=== PATIENT | female | born 1955 | race Hispanic/Latino ===

== ENCOUNTER → 2017-07-06 | Outpatient (CLI) | payer MEDICAID | END | disposition home or self-care (01) | LOC: SHCH 11:28 | PROVIDERS: ATTEND Internal Medicine Cardiovascular Disease | DX: I65.23 Occlusion and stenosis of bilateral carotid arteries (principal); I25.10 Atherosclerotic heart disease of native coronary artery without angina pectoris | CPT/HCPCS: 93880 ==

== ENCOUNTER 2017-10-15 08:08 | Emergency (ER) | payer MEDICAID ==
[2017-10-15] MEDS ORDERED: SODIUM CHLORIDE 0.9% 1000ML 1,000 ML IV ONE (09:07)
[2017-10-15] MEDS ORDERED: ONDANSETRON HCL MDV 20ML 2 MG/ML VIAL ONE (09:07)
[2017-10-15 09:08] LABS: EOSINOPHILS % (AUTO) 0.6 % (0.0-8.0); HEMATOCRIT 39.7 % (36-48); LYMPHOCYTES % (AUTO) 14.4 % (21.0-51.0); MEAN CORPUSCULAR HEMOGLOBIN 26.9 pg (27.0-33.0); MEAN CORPUSCULAR HGB CONC 32.8 g/dL (32.0-36.0); MONOCYTES % (AUTO) 12.1 % (3.0-13.0); NEUTROPHILS % (AUTO) 71.9 % (40.0-77.0); PLATELET COUNT (AUTO) 251 K/uL (130-400); RED BLOOD CELL COUNT(AUTO) 4.84 MIL/uL (4.00-5.50); RED CELL DISTRIBUTION WIDTH 16.6 % (11.0-15.5); WHITE BLOOD COUNT (AUTO) 11.8 K/uL (4.8-10.8)
[2017-10-15 09:15] LABS: CREATININE 2.2 mg/dL (0.5-1.5); POTASSIUM 4.2 mmol/L (3.5-5.1)
[2017-10-15 09:16] LABS: INR 1.01 (0.85-1.15); PROTHROMBIN TIME 10.6 SEC (9.6-11.6)
[2017-10-15 09:20] LABS: ALBUMIN 3.6 g/dL (3.5-5.0); BILIRUBIN,DIRECT 0.1 mg/dL (0.0-0.3); BILIRUBIN,TOTAL 0.4 mg/dL (0.2-1.0); TOTAL PROTEIN, SERUM 7.9 g/dL (6.0-8.3)
== END 2017-10-15 11:17 | disposition home or self-care (01) ==
LOC: EDH 08:08
DX: R10.9 Unspecified abdominal pain (principal); R11.2 Nausea with vomiting, unspecified; I25.10 Atherosclerotic heart disease of native coronary artery without angina pectoris; E11.9 Type 2 diabetes mellitus without complications; I10 Essential (primary) hypertension; Z86.73 Personal history of transient ischemic attack (TIA), and cerebral infarction without residual deficits; Z95.1 Presence of aortocoronary bypass graft; Z90.49 Acquired absence of other specified parts of digestive tract; Z88.8 Allergy status to other drugs, medicaments and biological substances
CPT/HCPCS: 36415; 74176; 80048; 80076; 83690; 84484; 85025; 85610; 85730; 93005; 96361; 96374; 99285; J7030

== ENCOUNTER → 2018-06-14 | Outpatient (CLI) | payer MEDICAID | END | disposition home or self-care (01) | LOC: SHCH 10:00 | PROVIDERS: ATTEND Internal Medicine Cardiovascular Disease | DX: I35.0 Nonrheumatic aortic (valve) stenosis (principal); I73.9 Peripheral vascular disease, unspecified | CPT/HCPCS: 93925 ==

== ENCOUNTER → 2018-12-12 | Outpatient (CLI) | payer MEDICARE | END | disposition home or self-care (01) | LOC: SHCH 10:34 | PROVIDERS: ATTEND Internal Medicine Cardiovascular Disease | DX: I65.23 Occlusion and stenosis of bilateral carotid arteries (principal); I25.810 Atherosclerosis of coronary artery bypass graft(s) without angina pectoris | CPT/HCPCS: 93880 ==

== ENCOUNTER 2021-04-14 16:37 | Inpatient (IN) | payer OTHER, MEDICARE ==
[~2021-04-14] VITALS: Ht 147.3 cm; Wt 79.7 kg
[~2021-04-14 16:37] MED LIST: AMLODIPINE PO; APIX5TAB PO; ASPI-556 PO; ATOR40TA71 PO; FURO40TA5 PO; INSU3INS5 SQ; ISOS20TA85 PO; LAMO100T16 PO; LAMO150T6 PO; LEVO50TA11 PO; LISI40TA9 PO; PARO37.516 PO
[2021-04-14] MEDS ORDERED: ONDANSETRON 4MG INJ IVP ONE (17:30)
[2021-04-14] MEDS ORDERED: 0.9% NACL 500ML IV.SOLN 500 ML IV ONE ×2 (17:30→17:38)
[2021-04-14] MEDS ORDERED: FAMOTIDINE 20MG TAB PO ONE (17:30)
[2021-04-14] MEDS ORDERED: FAMOTIDINE 20MG TAB ONE (17:37)
[2021-04-14] MEDS ORDERED: FAMOTIDINE 20MG VIAL IV ONE ×2 (17:43→18:00)
[2021-04-14] MEDS: ONDANSETRON 4MG INJ ONE ×2 (17:51→17:56)
[2021-04-14 17:59] LABS: BASOPHILS % (AUTO) 0.4 % (0.0-5.0); EOSINOPHILS % (AUTO) 1.3 % (0.0-8.0); HEMATOCRIT 28.4 % (36-48); LYMPHOCYTES % (AUTO) 6.1 % (21.0-51.0); MEAN CORPUSCULAR HEMOGLOBIN 25.9 pg (27.0-33.0); MEAN CORPUSCULAR HGB CONC 31.3 g/dL (32.0-36.0); MEAN CORPUSCULAR VOLUME 82.6 fL (79-99); MONOCYTES % (AUTO) 10.7 % (3.0-13.0); PLATELET COUNT (AUTO) 248 K/uL (130-400); RED BLOOD CELL COUNT(AUTO) 3.44 MIL/uL (4.00-5.50); RED CELL DISTRIBUTION WIDTH 18.6 % (11.0-15.5); WHITE BLOOD COUNT (AUTO) 13.5 K/uL (4.8-10.8)
[2021-04-14 18:11] LABS: CARBON DIOXIDE 31 mmol/L (21-32); CHLORIDE 100 mmol/L (101-111); CREATININE 2.5 mg/dL (0.5-1.5); GLOMERULAR FILTR. RATE CALC 20 mL/min (>60); GLUCOSE,RANDOM 183 mg/dL (70-105); POTASSIUM 3.3 mmol/L (3.5-5.1); SODIUM SERUM 141 mmol/L (136-145); UREA NITROGEN, BLOOD 35 mg/dL (7-18)
[2021-04-14 18:15] LABS: ALANINE AMINOTRANSFERASE 20 U/L (12-78); ALBUMIN 2.9 g/dL (3.5-5.0); AMYLASE 66 U/L (25-115); ASPARTATE AMINOTRANSFERASE 24 U/L (10-37); BILIRUBIN,TOTAL 0.6 mg/dL (0.2-1.0); CREATINE KINASE, TOTAL 158 U/L (21-232)
[2021-04-14 18:21] LABS: LIPASE < 50 U/L (114-286)
[2021-04-14 21:57] LABS: APPEARANCE,URINE Clear (CLEAR); BILIRUBIN,URINE Negative (NEGATIVE); COLOR,URINE Yellow (YELLOW); GLUCOSE, URINE (UA) Negative (NEGATIVE); KETONES,URINE Negative (NEGATIVE); LEUKOCYTE ESTERASE ,URINE Small (NEGATIVE); NITRATE,URINE Negative (NEGATIVE); OCCULT BLOOD,URINE Small (NEGATIVE); PH,URINE 5.5 (5.0-8.0); PROTEIN,URINE POS 2+ mg/dL (NEGATIVE)
[2021-04-14 22:03] LABS: BACTERIA,URINE Few /HPF (None Seen); SQUAMOUS EPITHELIAL CELL,UR Few /HPF (0-2); YEAST,URINE BUDDING Few /HPF (None Seen)
[2021-04-14 22:04] LABS: MUCUS,URINE Rare LPF (None Seen)
[2021-04-14 22:05] LABS: COARSE GRANULAR CASTS,URINE 0-2 /LPF (None Seen)
[2021-04-14] MEDS ORDERED: ZOSYN 3.375GM+NS 50ML 3.38 GM in 0.9%NACL 50ML 50 ML IV STA (22:35)
[2021-04-14] MEDS ORDERED: ACETAMINOPHEN 325 MG TAB PO PRN (23:30)
[2021-04-14] MEDS ORDERED: DEXTROSE 50%-WATER 50 ML DISP.SYRIN IV PRN (23:30)
[2021-04-14] MEDS ORDERED: BISACODYL 10 MG SUPP.RECT RC ONE (23:30)
[2021-04-14] MEDS ORDERED: POTASSIUM CHLORIDE 10MEQ/100ML 10 MEQ/100 ML ML IV SCH (23:30)
[2021-04-14] MEDS ORDERED: 0.9%NACL 1000ML 1,000 ML IV SCH (23:30)
[2021-04-14] MEDS ORDERED: ONDANSETRON 4MG INJ IV PRN (23:30)
[2021-04-14] MEDS ORDERED: NITROGLYCERIN 0.4 MG SL TAB SL PRN (23:30)
[2021-04-14] MEDS ORDERED: GLUCAGON 1MG KIT 1 MG ML IM PRN (23:30)
[2021-04-14 23:37] LABS: % IRON SATURATION 8.1 % (22-44)
[2021-04-14] MEDS ORDERED: AZITHROMYCIN 500MG+NS 250ML 250 ML IV ONE (23:38)
[2021-04-14 23:39] LABS: HEMOGLOBIN A1C 7.7 % (4.0-6.0)
[2021-04-14] MEDS ORDERED: POTASSIUM CHLORIDE 10MEQ/100ML 100 ML IV ONE (23:45)
[2021-04-14 23:48] LABS: CRP QUANTITATIVE 71.7 mg/L (0.00-9.0)
[2021-04-14 23:53] LABS: MAGNESIUM 1.9 mg/dL (1.80-2.40)
[2021-04-15] VITALS (7 sets, daily range): BP systolic 137–156; BP diastolic 41–87
[2021-04-15] MEDS: 0.9% NACL 250ML IVPB SCH (00:13)
[2021-04-15] MEDS: CEFTRIAXONE 1G VIAL IVP SCH (00:13)
[2021-04-15] MEDS: AZITHROMYCIN 500MG VIAL IVPB SCH (00:13)
[2021-04-15] MEDS ORDERED: KCL 20 MEQ ERTAB PO ONE (04:00)
[2021-04-15] MEDS ORDERED: FUROSEMIDE 20MG VIAL IV SCH (07:30)
[2021-04-15 10:12] LABS: BASOPHILS % (AUTO) 0.5 % (0.0-5.0); EOSINOPHILS % (AUTO) 1.4 % (0.0-8.0); HEMATOCRIT 28.4 % (36-48); LYMPHOCYTES % (AUTO) 5.3 % (21.0-51.0); MEAN CORPUSCULAR VOLUME 83.8 fL (79-99); MONOCYTES % (AUTO) 11.1 % (3.0-13.0); NEUTROPHILS % (AUTO) 81.3 % (40.0-77.0); NUCLEATED RED BLOOD CELLS 0.1 % (0.0-0.19); PLATELET COUNT (AUTO) 232 K/uL (130-400); RED BLOOD CELL COUNT(AUTO) 3.39 MIL/uL (4.00-5.50); RED CELL DISTRIBUTION WIDTH 18.6 % (11.0-15.5)
[2021-04-15 10:25] LABS: ALBUMIN 2.6 g/dL (3.5-5.0); BILIRUBIN,TOTAL 0.5 mg/dL (0.2-1.0); CREATININE 2.3 mg/dL (0.5-1.5); MAGNESIUM 1.9 mg/dL (1.80-2.40); POTASSIUM 3.1 mmol/L (3.5-5.1); TOTAL PROTEIN, SERUM 6.7 g/dL (6.0-8.3)
[2021-04-15 10:27] LABS: INR 1.12 (0.85-1.15); PROTHROMBIN TIME 12.1 SEC (9.6-11.6)
[2021-04-15 10:29] LABS: PARTIAL THROMBOPLASTIN TIME 32.7 SEC (26.3-35.5)
[2021-04-15] MEDS: INSULIN HUMULIN R 100 UNIT/ML 3ML SQ SCH ×3 (12:00→17:02)
[2021-04-15] MEDS: HEPARIN 5,000 UNIT VIAL SQ SCH ×2 (14:00→14:19)
[2021-04-15] MEDS: FAMOTIDINE 20MG VIAL IV SCH (14:09)
[2021-04-16] MEDS: HEPARIN 5,000 UNIT VIAL SQ SCH ×4 (00:03→21:40)
[2021-04-16] MEDS ORDERED: AZITHROMYCIN 500MG+NS 250ML 250 ML IV ONE ×2 (00:45→21:24)
[2021-04-16] MEDS: CEFTRIAXONE 1G VIAL IVP SCH ×2 (01:41→21:31)
[2021-04-16] MEDS: AZITHROMYCIN 500MG VIAL IVPB SCH ×2 (01:41→21:31)
[2021-04-16] MEDS: 0.9% NACL 250ML IVPB SCH ×2 (01:41→21:31)
[2021-04-16 04:04] VITALS: BP 146/59
[2021-04-16 04:57] LABS: HEMATOCRIT 28.7 % (36-48); MEAN CORPUSCULAR HEMOGLOBIN 25.6 pg (27.0-33.0); MEAN CORPUSCULAR HGB CONC 30.3 g/dL (32.0-36.0); MEAN CORPUSCULAR VOLUME 84.4 fL (79-99); NUCLEATED RED BLOOD CELLS 0.4 % (0.0-0.19); RED BLOOD CELL COUNT(AUTO) 3.4 MIL/uL (4.00-5.50); RED CELL DISTRIBUTION WIDTH 18.6 % (11.0-15.5); WHITE BLOOD COUNT (AUTO) 13.7 K/uL (4.8-10.8)
[2021-04-16 05:19] LABS: ALBUMIN 2.6 g/dL (3.5-5.0); BILIRUBIN,TOTAL 0.6 mg/dL (0.2-1.0); CREATININE 2.5 mg/dL (0.5-1.5); POTASSIUM 3.5 mmol/L (3.5-5.1); TOTAL PROTEIN, SERUM 6.7 g/dL (6.0-8.3)
[2021-04-16] MEDS: INSULIN HUMULIN R 100 UNIT/ML 3ML SQ SCH ×5 (06:22→21:41)
[2021-04-16 08:00] VITALS: BP 152/79
[2021-04-16] MEDS ORDERED: FUROSEMIDE 20MG VIAL IV SCH (09:00)
[2021-04-16] MEDS: FAMOTIDINE 20MG VIAL IV SCH (09:10)
[2021-04-16] MEDS ORDERED: LUBIPROSTONE 24 MCG CAP ONE (12:18)
[2021-04-16] MEDS: LUBIPROSTONE 24 MCG CAP PO SCH (12:19)
[2021-04-16 12:22] VITALS: BP 162/64
[2021-04-16 15:52] VITALS: BP 146/65
[2021-04-16] MEDS ORDERED: CLON0.1T PO (17:24)
[2021-04-16] MEDS ORDERED: METO-391 PO (17:24)
[2021-04-16] MEDS ORDERED: ROSU40TA21 PO (17:24)
[2021-04-16] MEDS: FUROSEMIDE 20MG VIAL IV SCH ×2 (18:45→23:50)
[2021-04-16] MEDS ORDERED: SODIUM CHLORIDE 3% FOR INHALATION 4 ML/AMP VIAL.NEB IH ONE (19:18)
[2021-04-16 20:00] VITALS: BP 138/60
[2021-04-17] VITALS: BP 146/67
[2021-04-17 04:00] VITALS: BP 158/68
[2021-04-17 04:07] LABS: HEMATOCRIT 28.4 % (36-48); MEAN CORPUSCULAR HEMOGLOBIN 25.9 pg (27.0-33.0); MEAN CORPUSCULAR VOLUME 83.5 fL (79-99); NUCLEATED RED BLOOD CELLS 0.4 % (0.0-0.19); RED BLOOD CELL COUNT(AUTO) 3.4 MIL/uL (4.00-5.50); RED CELL DISTRIBUTION WIDTH 18.5 % (11.0-15.5); WHITE BLOOD COUNT (AUTO) 13.5 K/uL (4.8-10.8)
[2021-04-17 04:18] LABS: CREATININE 2.5 mg/dL (0.5-1.5)
[2021-04-17 04:26] LABS: POTASSIUM 2.8 mmol/L (3.5-5.1)
[2021-04-17 07:20] VITALS: BP 176/78
[2021-04-17] MEDS: INSULIN HUMULIN R 100 UNIT/ML 3ML SQ SCH ×4 (07:30→21:00)
[2021-04-17] MEDS: LUBIPROSTONE 24 MCG CAP PO SCH ×2 (08:00→17:00)
[2021-04-17] MEDS: FAMOTIDINE 20MG VIAL IV SCH (08:21)
[2021-04-17] MEDS: POTASSIUM CHLORIDE 10MEQ/100ML 100 ML IV PRN ×2 (08:21→16:41)
[2021-04-17] MEDS: FUROSEMIDE 20MG VIAL IV SCH ×2 (08:21→18:01)
[2021-04-17] MEDS: HEPARIN 5,000 UNIT VIAL SQ SCH ×2 (09:00→15:07)
[2021-04-17 10:07] VITALS: BP 151/63
[2021-04-17] MEDS ORDERED: PROPOFOL 10 MG/ML 20ML VIAL IV ONE (12:35)
[2021-04-17] MEDS ORDERED: SODIUM CHLORIDE 3% FOR INHALATION 4 ML/AMP VIAL.NEB IH ONE ×2 (12:57→21:35)
[2021-04-17 15:56] VITALS: BP 173/67
[2021-04-17 20:00] VITALS: BP 138/76
[2021-04-17 22:17] LABS: CREATININE 2.4 mg/dL (0.5-1.5)
[2021-04-17 22:23] LABS: POTASSIUM 2.6 mmol/L (3.5-5.1)
[2021-04-18] VITALS: BP 173/79
[2021-04-18] MEDS: HEPARIN 5,000 UNIT VIAL SQ SCH ×4 (00:06→21:00)
[2021-04-18] MEDS: CEFTRIAXONE 1G VIAL IVP SCH ×2 (00:06→23:08)
[2021-04-18] MEDS ORDERED: AZITHROMYCIN 500MG+NS 250ML 250 ML IV ONE ×2 (00:25→23:19)
[2021-04-18] MEDS: 0.9% NACL 250ML IVPB SCH ×2 (00:32→23:34)
[2021-04-18] MEDS: AZITHROMYCIN 500MG VIAL IVPB SCH ×2 (00:32→23:34)
[2021-04-18] MEDS: FUROSEMIDE 20MG VIAL IV SCH ×3 (01:21→17:21)
[2021-04-18] MEDS: POTASSIUM CHLORIDE 10MEQ/100ML 100 ML IV PRN ×3 (02:51→15:04)
[2021-04-18] MEDS: LIDOCAINE HCL-MPF 1% 2ML VIAL IV PRN ×3 (02:52→15:04)
[2021-04-18 04:00] VITALS: BP 173/73
[2021-04-18] MEDS: INSULIN HUMULIN R 100 UNIT/ML 3ML SQ SCH ×4 (07:30→21:00)
[2021-04-18 08:00] VITALS: BP 186/60
[2021-04-18] MEDS: LUBIPROSTONE 24 MCG CAP PO SCH ×2 (08:00→16:47)
[2021-04-18] MEDS ORDERED: 0.9% NACL 500ML IV.SOLN 500 ML IV ONE (08:39)
[2021-04-18] MEDS: HYDRALAZINE 20MG/ML VIAL IV PRN (08:49)
[2021-04-18] MEDS: FAMOTIDINE 20MG VIAL IV SCH (08:49)
[2021-04-18 11:33] VITALS: BP 163/57
[2021-04-18] MEDS ORDERED: PROPOFOL 10 MG/ML 20ML VIAL IV ONE ×2 (14:15)
[2021-04-18] MEDS ORDERED: LIDOCAINE PF 100MG/5ML (2%) SYRINGE 5ML ONE (14:15)
[2021-04-18 16:00] VITALS: BP 174/79
[2021-04-18] MEDS ORDERED: KCL 20 MEQ ERTAB PO ONE ×2 (17:00→18:44)
[2021-04-18 20:00] VITALS: BP 166/69
[2021-04-18] MEDS ORDERED: MAGNESIUM 2GM PREMIX 50ML 50 ML IV PRN (22:30)
[2021-04-19] VITALS (13 sets, daily range): BP systolic 118–171; BP diastolic 63–87
[2021-04-19] MEDS: HYDRALAZINE 20MG/ML VIAL IV PRN (00:48)
[2021-04-19] MEDS: FUROSEMIDE 20MG VIAL IV SCH (02:00)
[2021-04-19] MEDS: POTASSIUM CHLORIDE 10MEQ/100ML 100 ML IV PRN (03:19)
[2021-04-19] MEDS: LIDOCAINE HCL-MPF 1% 2ML VIAL IV PRN (03:19)
[2021-04-19] MEDS: INSULIN HUMULIN R 100 UNIT/ML 3ML SQ SCH ×4 (06:31→21:00)
[2021-04-19 07:10] LABS: HEMATOCRIT 32.1 % (36-48); MEAN CORPUSCULAR HEMOGLOBIN 25.8 pg (27.0-33.0); MEAN CORPUSCULAR HGB CONC 31.5 g/dL (32.0-36.0); MEAN CORPUSCULAR VOLUME 82.1 fL (79-99); NUCLEATED RED BLOOD CELLS 0.1 % (0.0-0.19); RED BLOOD CELL COUNT(AUTO) 3.91 MIL/uL (4.00-5.50); RED CELL DISTRIBUTION WIDTH 18.2 % (11.0-15.5); WHITE BLOOD COUNT (AUTO) 13.8 K/uL (4.8-10.8)
[2021-04-19 07:24] LABS: CREATININE 1.9 mg/dL (0.5-1.5); POTASSIUM 3.8 mmol/L (3.5-5.1)
[2021-04-19] MEDS: LUBIPROSTONE 24 MCG CAP PO SCH ×2 (08:00→16:23)
[2021-04-19] MEDS: HEPARIN 5,000 UNIT VIAL SQ SCH (09:00)
[2021-04-19] MEDS ORDERED: AMLODIPINE 5 MG TAB PO SCH (10:58)
[2021-04-19] MEDS ORDERED: PROPOFOL 10 MG/ML 20ML VIAL IV ONE (11:29)
[2021-04-19] MEDS: LACTULOSE 20 GM/30 ML UDCUP PO PRN ×2 (13:56→16:24)
[2021-04-19] MEDS ORDERED: MAGNESIUM CITRATE 296 ML SOLUTION PO SCH (15:00)
[2021-04-19] MEDS ORDERED: PEG 3350/NA SULF,BICARB,CL/KCL 4000 ML SOLN PO SCH (15:00)
[2021-04-19] MEDS ORDERED: AMLODIPINE 5 MG TAB PO ONE (16:05)
[2021-04-19] MEDS ORDERED: LACTULOSE 20 GM/30 ML UDCUP ONE (16:21)
[2021-04-19] MEDS: FAMOTIDINE 20MG VIAL IV SCH (16:24)
[2021-04-19] MEDS ORDERED: BISACODYL 5 MG TABLET.DR PO SCH (17:00)
[2021-04-19] MEDS ORDERED: LAMOTRIGINE 25 MG TAB PO SCH (21:00)
[2021-04-19] MEDS ORDERED: METOPROLOL SUCCINATE 50 MG TAB.SR.24H PO SCH ×2 (21:00)
[2021-04-19] MEDS ORDERED: LAMOTRIGINE 100 MG TABLET PO SCH (21:00)
[2021-04-19] MEDS: PAROXETINE HCL 20 MG TABLET PO SCH (21:44)
[2021-04-19] MEDS ORDERED: LORAZEPAM 2 MG/ML 1 ML VIAL ONE (21:56)
[2021-04-19] MEDS ORDERED: MORPHINE 2 MG SYG ONE (22:00)
[2021-04-19] MEDS ORDERED: MORPHINE 2 MG SYG IVP ONE (22:00)
[2021-04-19] MEDS: ATORVASTATIN 40 MG TABLET PO SCH (23:01)
[2021-04-19] MEDS: ISOSORBIDE MONONITRATE 20 MG TABLET PO SCH (23:01)
[2021-04-19] MEDS ORDERED: AZITHROMYCIN 500MG+NS 250ML 250 ML IV ONE (23:09)
[2021-04-19] MEDS: 0.9% NACL 250ML IVPB SCH (23:11)
[2021-04-19] MEDS: AZITHROMYCIN 500MG VIAL IVPB SCH (23:11)
[2021-04-19] MEDS: CEFTRIAXONE 1G VIAL IVP SCH (23:11)
[2021-04-20] VITALS (21 sets, daily range): BP systolic 105–161; BP diastolic 46–77
[2021-04-20 04:16] LABS: BASOPHILS % (AUTO) 0.5 % (0.0-5.0); EOSINOPHILS % (AUTO) 4.7 % (0.0-8.0); HEMATOCRIT 35.5 % (36-48); LYMPHOCYTES % (AUTO) 7.3 % (21.0-51.0); MEAN CORPUSCULAR HEMOGLOBIN 25.7 pg (27.0-33.0); MEAN CORPUSCULAR HGB CONC 30.1 g/dL (32.0-36.0); MEAN CORPUSCULAR VOLUME 85.3 fL (79-99); MONOCYTES % (AUTO) 9.8 % (3.0-13.0); NEUTROPHILS % (AUTO) 77.1 % (40.0-77.0); PLATELET COUNT (AUTO) 308 K/uL (130-400); RED BLOOD CELL COUNT(AUTO) 4.16 MIL/uL (4.00-5.50); RED CELL DISTRIBUTION WIDTH 18.7 % (11.0-15.5); WHITE BLOOD COUNT (AUTO) 14.4 K/uL (4.8-10.8)
[2021-04-20 04:43] LABS: ALBUMIN 2.9 g/dL (3.5-5.0); BILIRUBIN,TOTAL 0.4 mg/dL (0.2-1.0); POTASSIUM 3.7 mmol/L (3.5-5.1); TOTAL PROTEIN, SERUM 7.1 g/dL (6.0-8.3)
[2021-04-20] MEDS: INSULIN HUMULIN R 100 UNIT/ML 3ML SQ SCH ×4 (06:27→21:00)
[2021-04-20] MEDS: LUBIPROSTONE 24 MCG CAP PO SCH ×2 (08:00→17:01)
[2021-04-20] MEDS: ASPIRIN 81 MG EC TAB PO SCH (08:08)
[2021-04-20] MEDS ORDERED: LAMOTRIGINE 100 MG TABLET PO SCH (09:00)
[2021-04-20] MEDS: FAMOTIDINE 20MG VIAL IV SCH (09:16)
[2021-04-20] MEDS: FUROSEMIDE 40 MG TABLET PO SCH (09:17)
[2021-04-20] MEDS: ISOSORBIDE MONONITRATE 20 MG TABLET PO SCH ×2 (09:18→20:16)
[2021-04-20] MEDS: AMLODIPINE 5 MG TAB PO SCH (09:18)
[2021-04-20] MEDS ORDERED: PHARMACY COMMUNICATION MISC SCH (10:30)
[2021-04-20] MEDS ORDERED: PHENYLEPHRINE HCL 10 MG/ML 1ML VIAL IV ONE (11:07)
[2021-04-20] MEDS ORDERED: PROPOFOL 10 MG/ML 20ML VIAL IV ONE (11:07)
[2021-04-20] MEDS ORDERED: LIDOCAINE HCL 400MG/20ML VIAL ONE (11:09)
[2021-04-20] MEDS ORDERED: AZITHROMYCIN 500MG+NS 250ML 250 ML IV ONE (20:00)
[2021-04-20] MEDS: PAROXETINE HCL 20 MG TABLET PO SCH (20:16)
[2021-04-20] MEDS: HYDROCORTISONE 25 MG SUPPOSITORY PR SCH (20:16)
[2021-04-20] MEDS: ATORVASTATIN 40 MG TABLET PO SCH (20:16)
[2021-04-20] MEDS: LAMOTRIGINE 100 MG TABLET PO SCH (20:17)
[2021-04-20] MEDS: CEFTRIAXONE 1G VIAL IVP SCH (20:18)
[2021-04-20] MEDS: AZITHROMYCIN 500MG VIAL IVPB SCH (20:18)
[2021-04-20] MEDS: 0.9% NACL 250ML IVPB SCH (20:18)
[2021-04-21] MEDS: INSULIN HUMULIN R 100 UNIT/ML 3ML SQ SCH ×5 (01:42→23:21)
[2021-04-21 02:20] VITALS: BP 96/45
[2021-04-21 03:30] VITALS: BP 110/50
[2021-04-21] MEDS: LUBIPROSTONE 24 MCG CAP PO SCH ×2 (09:00→17:46)
[2021-04-21] MEDS: ASPIRIN 81 MG EC TAB PO SCH (09:00)
[2021-04-21] MEDS: FAMOTIDINE 20MG VIAL IV SCH (10:08)
[2021-04-21] MEDS: ISOSORBIDE MONONITRATE 20 MG TABLET PO SCH ×2 (10:08→23:07)
[2021-04-21] MEDS: FUROSEMIDE 40 MG TABLET PO SCH (10:09)
[2021-04-21] MEDS: LAMOTRIGINE 100 MG TABLET PO SCH ×2 (10:09→23:07)
[2021-04-21] MEDS: AMLODIPINE 5 MG TAB PO SCH (10:16)
[2021-04-21 11:21] LABS: INR 1.03 (0.85-1.15); PROTHROMBIN TIME 11.2 SEC (9.6-11.6)
[2021-04-21 11:23] LABS: PARTIAL THROMBOPLASTIN TIME 27.1 SEC (26.3-35.5)
[2021-04-21] MEDS: HYDROCORTISONE 25 MG SUPPOSITORY PR SCH ×2 (12:08→21:00)
[2021-04-21 15:30] VITALS: BP 140/61
[2021-04-21 20:00] VITALS: BP 113/49
[2021-04-21] MEDS ORDERED: AZITHROMYCIN 500MG+NS 250ML 250 ML IV ONE (22:43)
[2021-04-21] MEDS: ATORVASTATIN 40 MG TABLET PO SCH (23:07)
[2021-04-21] MEDS: PAROXETINE HCL 20 MG TABLET PO SCH (23:07)
[2021-04-21] MEDS: 0.9% NACL 250ML IVPB SCH (23:08)
[2021-04-21] MEDS: AZITHROMYCIN 500MG VIAL IVPB SCH (23:08)
[2021-04-21] MEDS: CEFTRIAXONE 1G VIAL IVP SCH (23:09)
[2021-04-21 23:34] VITALS: BP 155/43
[2021-04-22 03:16] VITALS: BP 128/49
[2021-04-22] MEDS: INSULIN HUMULIN R 100 UNIT/ML 3ML SQ SCH ×4 (07:03→21:41)
[2021-04-22] MEDS: LUBIPROSTONE 24 MCG CAP PO SCH ×2 (08:00→17:22)
[2021-04-22] MEDS: FAMOTIDINE 20MG VIAL IV SCH (08:25)
[2021-04-22] MEDS: HYDROCORTISONE 25 MG SUPPOSITORY PR SCH ×2 (09:00→21:47)
[2021-04-22] MEDS: LAMOTRIGINE 100 MG TABLET PO SCH ×2 (09:00→21:33)
[2021-04-22] MEDS: ASPIRIN 81 MG EC TAB PO SCH (09:00)
[2021-04-22] MEDS: FUROSEMIDE 40 MG TABLET PO SCH (09:00)
[2021-04-22] MEDS: ISOSORBIDE MONONITRATE 20 MG TABLET PO SCH ×2 (09:00→21:33)
[2021-04-22] MEDS: AMLODIPINE 5 MG TAB PO SCH (09:00)
[2021-04-22 10:10] VITALS: BP 128/53
[2021-04-22 11:24] VITALS: BP 106/60
[2021-04-22 15:39] VITALS: BP 152/61
[2021-04-22 20:04] VITALS: BP 139/61
[2021-04-22] MEDS ORDERED: AZITHROMYCIN 500MG+NS 250ML 250 ML IV ONE (21:25)
[2021-04-22] MEDS: ATORVASTATIN 40 MG TABLET PO SCH (21:32)
[2021-04-22] MEDS: PAROXETINE HCL 20 MG TABLET PO SCH (21:33)
[2021-04-22] MEDS: AZITHROMYCIN 500MG VIAL IVPB SCH (22:43)
[2021-04-22] MEDS: CEFTRIAXONE 1G VIAL IVP SCH (22:43)
[2021-04-22] MEDS: 0.9% NACL 250ML IVPB SCH (22:44)
[2021-04-23] VITALS (8 sets, daily range): BP systolic 114–156; BP diastolic 50–65
[2021-04-23] MEDS: INSULIN HUMULIN R 100 UNIT/ML 3ML SQ SCH ×4 (05:21→20:52)
[2021-04-23] MEDS: ASPIRIN 81 MG EC TAB PO SCH (09:00)
[2021-04-23] MEDS: ISOSORBIDE MONONITRATE 20 MG TABLET PO SCH ×2 (09:03→20:58)
[2021-04-23] MEDS: FAMOTIDINE 20MG VIAL IV SCH (09:03)
[2021-04-23] MEDS: LUBIPROSTONE 24 MCG CAP PO SCH ×2 (09:03→16:30)
[2021-04-23] MEDS: FUROSEMIDE 40 MG TABLET PO SCH (09:04)
[2021-04-23] MEDS: LAMOTRIGINE 100 MG TABLET PO SCH ×2 (09:04→20:59)
[2021-04-23] MEDS: AMLODIPINE 5 MG TAB PO SCH (09:05)
[2021-04-23 09:47] LABS: BASOPHILS % (AUTO) 0.4 % (0.0-5.0); EOSINOPHILS % (AUTO) 5.6 % (0.0-8.0); LYMPHOCYTES % (AUTO) 7.9 % (21.0-51.0); MEAN CORPUSCULAR HEMOGLOBIN 25.6 pg (27.0-33.0); MEAN CORPUSCULAR HGB CONC 30.7 g/dL (32.0-36.0); MEAN CORPUSCULAR VOLUME 83.6 fL (79-99); MONOCYTES % (AUTO) 8.6 % (3.0-13.0); NEUTROPHILS % (AUTO) 76.6 % (40.0-77.0); PLATELET COUNT (AUTO) 294 K/uL (130-400); RED BLOOD CELL COUNT(AUTO) 3.59 MIL/uL (4.00-5.50); RED CELL DISTRIBUTION WIDTH 18.9 % (11.0-15.5); WHITE BLOOD COUNT (AUTO) 12.2 K/uL (4.8-10.8)
[2021-04-23 09:51] LABS: CREATININE 1.8 mg/dL (0.5-1.5); POTASSIUM 3.1 mmol/L (3.5-5.1)
[2021-04-23 11:07] LABS: APPEARANCE,URINE Turbid (CLEAR); BILIRUBIN,URINE Negative (NEGATIVE); COLOR,URINE Yellow (YELLOW); GLUCOSE, URINE (UA) 250 mg/dL (NEGATIVE); KETONES,URINE 15 mg/dL (NEGATIVE); LEUKOCYTE ESTERASE ,URINE Moderate (NEGATIVE); NITRATE,URINE Negative (NEGATIVE); OCCULT BLOOD,URINE Moderate (NEGATIVE); PH,URINE 5.5 (5.0-8.0); PROTEIN,URINE 300 mg/dL (NEGATIVE); UROBILINOGEN,URINE 0.2 mg/dL (0.2-1.0)
[2021-04-23] MEDS: HYDROCORTISONE 25 MG SUPPOSITORY PR SCH ×2 (11:07→21:00)
[2021-04-23 11:56] LABS: BACTERIA,URINE Many /HPF (None Seen); YEAST,URINE BUDDING Many /HPF (None Seen)
[2021-04-23 11:57] LABS: SQUAMOUS EPITHELIAL CELL,UR Rare /HPF (0-2); WBC,URINE 51-100 /HPF (0-1)
[2021-04-23] MEDS: ATORVASTATIN 40 MG TABLET PO SCH (20:59)
[2021-04-23] MEDS: PAROXETINE HCL 20 MG TABLET PO SCH (20:59)
[2021-04-24] MEDS ORDERED: AZITHROMYCIN 500MG+NS 250ML 250 ML IV ONE ×2 (00:12→22:07)
[2021-04-24] MEDS: CEFTRIAXONE 1G VIAL IVP SCH ×2 (00:15→22:37)
[2021-04-24] MEDS: AZITHROMYCIN 500MG VIAL IVPB SCH ×2 (00:15→22:37)
[2021-04-24] MEDS: 0.9% NACL 250ML IVPB SCH ×2 (00:15→22:39)
[2021-04-24 04:02] VITALS: BP 161/69
[2021-04-24] MEDS: INSULIN HUMULIN R 100 UNIT/ML 3ML SQ SCH ×4 (07:30→21:00)
[2021-04-24 08:00] VITALS: BP 131/48
[2021-04-24] MEDS: LUBIPROSTONE 24 MCG CAP PO SCH ×2 (08:00→17:58)
[2021-04-24] MEDS: HYDROCORTISONE 25 MG SUPPOSITORY PR SCH ×2 (09:00→22:38)
[2021-04-24] MEDS: LAMOTRIGINE 100 MG TABLET PO SCH ×2 (10:38→22:37)
[2021-04-24] MEDS: FUROSEMIDE 40 MG TABLET PO SCH (10:38)
[2021-04-24] MEDS: ASPIRIN 81 MG EC TAB PO SCH (10:38)
[2021-04-24] MEDS: AMLODIPINE 5 MG TAB PO SCH (10:39)
[2021-04-24] MEDS: FAMOTIDINE 20MG VIAL IV SCH (10:39)
[2021-04-24] MEDS: ISOSORBIDE MONONITRATE 20 MG TABLET PO SCH ×2 (10:40→22:37)
[2021-04-24 12:00] VITALS: BP 153/65
[2021-04-24] MEDS: ACETAMINOPHEN 325 MG TAB PO PRN (12:39)
[2021-04-24 14:43] LABS: BASOPHILS % (AUTO) 0.4 % (0.0-5.0); EOSINOPHILS % (AUTO) 4.3 % (0.0-8.0); HEMATOCRIT 29.9 % (36-48); LYMPHOCYTES % (AUTO) 7.5 % (21.0-51.0); MEAN CORPUSCULAR HEMOGLOBIN 25.8 pg (27.0-33.0); MEAN CORPUSCULAR HGB CONC 30.8 g/dL (32.0-36.0); MONOCYTES % (AUTO) 9.7 % (3.0-13.0); NEUTROPHILS % (AUTO) 77.2 % (40.0-77.0); PLATELET COUNT (AUTO) 307 K/uL (130-400); RED BLOOD CELL COUNT(AUTO) 3.56 MIL/uL (4.00-5.50); RED CELL DISTRIBUTION WIDTH 19.1 % (11.0-15.5); WHITE BLOOD COUNT (AUTO) 11.2 K/uL (4.8-10.8)
[2021-04-24 14:55] LABS: CREATININE 1.7 mg/dL (0.5-1.5); POTASSIUM 3.3 mmol/L (3.5-5.1)
[2021-04-24 16:00] VITALS: BP 144/55
[2021-04-24] MEDS ORDERED: FLUOXETINE HCL 10 MG CAPSULE PO SCH (17:00)
[2021-04-24 19:40] VITALS: BP 143/56
[2021-04-24] MEDS: ATORVASTATIN 40 MG TABLET PO SCH (22:37)
[2021-04-24] MEDS: PAROXETINE HCL 20 MG TABLET PO SCH (22:38)
[2021-04-24 23:36] VITALS: BP 139/58
[2021-04-25 04:59] VITALS: BP 159/61
[2021-04-25] MEDS: INSULIN HUMULIN R 100 UNIT/ML 3ML SQ SCH ×4 (06:15→21:00)
[2021-04-25 08:00] VITALS: BP 143/50
[2021-04-25] MEDS: FAMOTIDINE 20MG VIAL IV SCH (08:36)
[2021-04-25] MEDS: LUBIPROSTONE 24 MCG CAP PO SCH ×2 (08:38→16:44)
[2021-04-25] MEDS: FLUOXETINE HCL 10 MG CAPSULE PO SCH (08:38)
[2021-04-25] MEDS: AMLODIPINE 5 MG TAB PO SCH (08:38)
[2021-04-25] MEDS: ISOSORBIDE MONONITRATE 20 MG TABLET PO SCH ×2 (08:38→22:03)
[2021-04-25] MEDS: FUROSEMIDE 40 MG TABLET PO SCH (08:39)
[2021-04-25] MEDS: HYDROCORTISONE 25 MG SUPPOSITORY PR SCH ×2 (08:39→22:04)
[2021-04-25] MEDS: ASPIRIN 81 MG EC TAB PO SCH (08:41)
[2021-04-25] MEDS: LAMOTRIGINE 100 MG TABLET PO SCH ×2 (08:52→22:03)
[2021-04-25 11:36] VITALS: BP 157/68
[2021-04-25 16:00] VITALS: BP 139/70
[2021-04-25 20:45] VITALS: BP 100/61
[2021-04-25] MEDS ORDERED: AZITHROMYCIN 500MG+NS 250ML 250 ML IV ONE (21:31)
[2021-04-25] MEDS: 0.9% NACL 250ML IVPB SCH (22:02)
[2021-04-25] MEDS: AZITHROMYCIN 500MG VIAL IVPB SCH (22:02)
[2021-04-25] MEDS: ATORVASTATIN 40 MG TABLET PO SCH (22:03)
[2021-04-25] MEDS: PAROXETINE HCL 20 MG TABLET PO SCH (22:03)
[2021-04-25] MEDS: CEFTRIAXONE 1G VIAL IVP SCH (22:04)
[2021-04-26] VITALS: BP 123/51
[2021-04-26 04:27] VITALS: BP 142/70
[2021-04-26 05:20] LABS: BASOPHILS % (AUTO) 0.3 % (0.0-5.0); EOSINOPHILS % (AUTO) 6.6 % (0.0-8.0); LYMPHOCYTES % (AUTO) 8.7 % (21.0-51.0); MEAN CORPUSCULAR HEMOGLOBIN 25.6 pg (27.0-33.0); MEAN CORPUSCULAR HGB CONC 30.7 g/dL (32.0-36.0); MEAN CORPUSCULAR VOLUME 83.6 fL (79-99); MONOCYTES % (AUTO) 11.1 % (3.0-13.0); NEUTROPHILS % (AUTO) 72.8 % (40.0-77.0); PLATELET COUNT (AUTO) 353 K/uL (130-400); RED BLOOD CELL COUNT(AUTO) 3.47 MIL/uL (4.00-5.50)
[2021-04-26 05:40] LABS: CREATININE 1.6 mg/dL (0.5-1.5)
[2021-04-26 05:49] LABS: POTASSIUM 2.7 mmol/L (3.5-5.1)
[2021-04-26] MEDS: INSULIN HUMULIN R 100 UNIT/ML 3ML SQ SCH ×2 (06:05→11:30)
[2021-04-26] MEDS: POTASSIUM CHLORIDE 10MEQ/100ML 100 ML IV PRN ×2 (06:30→14:39)
[2021-04-26] MEDS: LIDOCAINE HCL-MPF 1% 2ML VIAL IV PRN ×2 (06:30→14:38)
[2021-04-26 08:00] VITALS: BP 138/74
[2021-04-26] MEDS ORDERED: HYDROXYZINE 25 MG TABLET PO SCH (08:30)
[2021-04-26] MEDS: ASPIRIN 81 MG EC TAB PO SCH (08:50)
[2021-04-26] MEDS: AMLODIPINE 5 MG TAB PO SCH (08:50)
[2021-04-26] MEDS: ISOSORBIDE MONONITRATE 20 MG TABLET PO SCH (08:51)
[2021-04-26] MEDS: LAMOTRIGINE 100 MG TABLET PO SCH (08:51)
[2021-04-26] MEDS: FLUOXETINE HCL 10 MG CAPSULE PO SCH (08:51)
[2021-04-26] MEDS: FUROSEMIDE 40 MG TABLET PO SCH (08:51)
[2021-04-26] MEDS: LUBIPROSTONE 24 MCG CAP PO SCH (08:51)
[2021-04-26] MEDS: FAMOTIDINE 20MG VIAL IV SCH (08:53)
[2021-04-26] MEDS: HYDROCORTISONE 25 MG SUPPOSITORY PR SCH (09:00)
[2021-04-26] MEDS ORDERED: ZIPRASIDONE MESYLATE 20 MG/VIAL IM SCH (09:00)
[2021-04-26] MEDS: ACETAMINOPHEN 325 MG TAB PO PRN (09:57)
[2021-04-26 12:00] VITALS: BP 127/58
== END 2021-04-26 15:45 | disposition left against medical advice (07) | DRG 871 ==
LOC: EDH 16:37 → EDHIP 22:52 → 3BH 04-15 09:08 → 3CH 04-16 10:59
PROVIDERS: ADMIT Hospitalist; ATTEND Hospitalist
PROC: 0DB98ZX Excision of Duodenum, Via Natural or Artificial Opening Endoscopic, Diagnostic (ICD-10-PCS; principal; 2021-04-19)
PROC: 0DB68ZX Excision of Stomach, Via Natural or Artificial Opening Endoscopic, Diagnostic (ICD-10-PCS; 2021-04-19)
PROC: 0DB38ZX Excision of Lower Esophagus, Via Natural or Artificial Opening Endoscopic, Diagnostic (ICD-10-PCS; 2021-04-19)
PROC: 0DBK8ZZ Excision of Ascending Colon, Via Natural or Artificial Opening Endoscopic (ICD-10-PCS; 2021-04-20)
PROC: 0DBL8ZZ Excision of Transverse Colon, Via Natural or Artificial Opening Endoscopic (ICD-10-PCS; 2021-04-20)
PROC: 0DBM8ZZ Excision of Descending Colon, Via Natural or Artificial Opening Endoscopic (ICD-10-PCS; 2021-04-20)
PROC: 0DBK8ZX Excision of Ascending Colon, Via Natural or Artificial Opening Endoscopic, Diagnostic (ICD-10-PCS; 2021-04-20)
DX: A41.9 Sepsis, unspecified organism (principal); J18.9 Pneumonia, unspecified organism; G93.41 Metabolic encephalopathy; I50.43 Acute on chronic combined systolic (congestive) and diastolic (congestive) heart failure; J96.01 Acute respiratory failure with hypoxia; E87.0 Hyperosmolality and hypernatremia; B37.49 Other urogenital candidiasis; G93.49 Other encephalopathy; I13.2 Hypertensive heart and chronic kidney disease with heart failure and with stage 5 chronic kidney disease, or end stage renal disease; N13.30 Unspecified hydronephrosis; N18.5 Chronic kidney disease, stage 5; D62 Acute posthemorrhagic anemia; E11.22 Type 2 diabetes mellitus with diabetic chronic kidney disease; E78.5 Hyperlipidemia, unspecified; E87.6 Hypokalemia; D50.9 Iron deficiency anemia, unspecified; E03.9 Hypothyroidism, unspecified; K80.20 Calculus of gallbladder without cholecystitis without obstruction; A08.4 Viral intestinal infection, unspecified; K27.9 Peptic ulcer, site unspecified, unspecified as acute or chronic, without hemorrhage or perforation; E78.00 Pure hypercholesterolemia, unspecified; G40.909 Epilepsy, unspecified, not intractable, without status epilepticus; G93.89 Other specified disorders of brain; I08.0 Rheumatic disorders of both mitral and aortic valves; I25.10 Atherosclerotic heart disease of native coronary artery without angina pectoris; I27.20 Pulmonary hypertension, unspecified; I48.0 Paroxysmal atrial fibrillation; I65.22 Occlusion and stenosis of left carotid artery; I70.0 Atherosclerosis of aorta; K21.00 Gastro-esophageal reflux disease with esophagitis, without bleeding; K44.9 Diaphragmatic hernia without obstruction or gangrene; K29.00 Acute gastritis without bleeding; R19.5 Other fecal abnormalities; R19.7 Diarrhea, unspecified; K63.5 Polyp of colon; K64.1 Second degree hemorrhoids; K57.30 Diverticulosis of large intestine without perforation or abscess without bleeding; K29.70 Gastritis, unspecified, without bleeding; K59.00 Constipation, unspecified; Z20.822 Contact with and (suspected) exposure to COVID-19; Z95.1 Presence of aortocoronary bypass graft; Z95.3 Presence of xenogenic heart valve; Z91.19 Patient's noncompliance with other medical treatment and regimen; Z86.73 Personal history of transient ischemic attack (TIA), and cerebral infarction without residual deficits; Z88.8 Allergy status to other drugs, medicaments and biological substances
CPT/HCPCS: 36415; 43239; 45380; 45385; 70450; 71045; 74176; 76705; 80048; 80053; 80061; 81001; 82140; 82150; 82270; 82542; 82550; 82948; 83036; 83540; 83550; 83605; 83690; 83735; 83880; 84132; 84145; 84443; 84484; 85025; 85027; 85049; 85610; 85730; 86140; 87040; 87088; 87635; 87804; 87880; 88305; 93005; 93306; 93356; 94640; 97039; A4606; G0378; J0360; J0456; J0696; J1644; J1815; J1940; J2001; J2060; J2370; J2405; J2543; J2704; J3475; J3486; J3490; J7030; J7040; J7050